=== PATIENT | female | born 1930 | race Caucasian/White ===

== ENCOUNTER 2018-01-28 13:35 | Inpatient (IN) ==
--- NOTE | 2018-01-28 13:55 | ED ---
HPI General Chief Complaint: Altered Mental Status Stated Complaint: EVAC/Weakness/ams Time Seen by Provider: 01/28/18 13:38 History of Present Illness HPI narrative: The patient was seen and examined in the presence of the nurse. This patient complains of generalized weakness. Started yesterday while she was shopping at [employer]. She went home but continued to feel weak. Today she decided to go for a walk and her legs gave out and she got gradually let down to the ground. No specific injury from a fall. She laid on the ground for a while. Her motor route carrier noticed her having trouble and called 911. She denies any pain. No specific muscle group weakness but just feels weak in general everywhere. No fever or vomiting or diarrhea or chest pain or shortness of breath. Severity is moderate. No alleviating factors. No exacerbating factors. Duration is 2 days Related Data Home Medications Medication Instructions Recorded Confirmed allopurinol 100 mg PO DAILY 01/28/18 01/28/18 amlodipine 5 mg PO DAILY 01/28/18 01/28/18 benazepril-hydrochlorothiazide 1 tab PO DAILY 01/28/18 01/28/18 metformin 500 mg PO DAILY 01/28/18 01/28/18 potassium chloride [Klor-Con] 20 meq PO DAILY 01/28/18 01/28/18 simvastatin 40 mg PO QPM 01/28/18 01/28/18 timolol maleate 1 drp OPHTHALMIC (EYE) BID 01/28/18 01/28/18 Allergies Allergy/AdvReac Type Severity Reaction Status Date / Time captopril Allergy Severe Dizziness Verified 01/28/18 13:55 ciprofloxacin [From Cipro] Allergy Severe Hives Verified 01/28/18 13:55 doxazosin [From Cardura] Allergy Severe Dizziness Verified 01/28/18 13:55 hydrocodone Allergy Severe Nausea/Vomi Verified 01/28/18 13:55 ting oxycodone Allergy Severe Dizziness Verified 01/28/18 13:55 Review of Systems Except as stated in HPI: all other systems reviewed are negative [facility] Medical History Medical History Diabetes (Acute) Social History Social History Substance History: No History of Abuse Smoking Status: Never smoker How Often Do You Have a Drink Containing Alcohol: Never Recent Out of Country Travel within the Last 8 Weeks: No Immunization History Tetanus Immunization: Unsure Hx Influenza Vaccine This Season: Yes Exam Narrative Exam Narrative: GENERAL: Well-nourished, well-developed patient in no apparent distress. SKIN: Focused skin assessment reveals no rash and nodules. Skin is Warm and dry. HEAD: Atraumatic. Normocephalic. EYES: Pupils equal and round. No scleral icterus. No injection or drainage. ENT: No nasal bleeding or discharge. Mucous membranes pink and moist. NECK: Trachea midline. No JVD. No meningeal signs or midline tenderness CARDIOVASCULAR: Regular rate and rhythm. No murmur appreciated. RESPIRATORY: No accessory muscle use. Clear to auscultation. Breath sounds equal bilaterally. GASTROINTESTINAL: Abdomen soft, non-tender, nondistended. Hepatic and splenic margins not palpable. MUSCULOSKELETAL: No obvious deformities. No clubbing. No cyanosis. No edema. She has abrasions on both elbows but no bony tenderness. There is an abrasion to the back as well without tenderness NEUROLOGICAL: Awake and alert. No obvious cranial nerve deficits. Motor grossly within normal limits. Normal speech. PSYCHIATRIC: Appropriate mood and affect; insight and judgment seems off. She is a bit confused. She gives varying accounts of the story that do not really make sense. No hallucination. Course Initial Documented Vital Signs Temperature 98.1 F 01/28/18 13:38 Pulse Rate 64 01/28/18 13:38 Respiratory Rate 18 01/28/18 13:38 Blood Pressure 149/83 H 01/28/18 13:38 Pulse Oximetry 98 01/28/18 13:38 Last Documented Vital Signs Temperature 98.1 F 01/28/18 13:38 Pulse Rate 49 L 01/28/18 14:42 Respiratory Rate 18 01/28/18 14:42 Blood Pressure 139/59 L 01/28/18 14:42 Pulse Oximetry 99 01/28/18 14:42 Medical Decision Making [facility] Narrative Medical decision making narrative: This patient has altered mental status. Etiology is not entirely clear. Brain CT is negative. She has entirely normal vitals and no fever but does have a white cell count 24.3 thousand. Will get a chest x-ray although she has no respiratory symptoms. Her catheterized urine is clean. No meningeal signs. Metabolic studies reasonably normal other than some hypokalemia. I placed a call to the hospitalist to discuss. She is not stable for outpatient follow-up given that she is an elderly lady who lives alone and is confused and has prominent leukocytosis Medical Records Medical records reviewed: Yes I reviewed the patient's medical records. Lab Data Result diagrams: 01/28/18 14:00 01/28/18 14:00 Lab Results 01/28/18 01/28/18 01/28/18 Range/Units 14:00 14:00 14:10 CBC w Diff Slide review pending WBC 24.3 H (4.0-11.0) th/mm3 RBC 4.05 (4.00-5.30) mil/mm3 Hgb 12.9 (11.6-15.3) gm/dL Hct 38.4 (35.0-46.0) % MCV 94.7 (80.0-100.0) fL MCH 31.7 (27.0-34.0) pg MCHC 33.5 (32.0-36.0) % RDW 13.4 (11.6-17.2) % Plt Count 164 (150-450) th/mm3 MPV 9.1 (7.0-11.0) fL Neut % (Auto) 43.7 (16.0-70.0) % Lymph % (Auto) 51.2 H (9.0-44.0) % [place] % (Auto) 3.0 (0.0-8.0) % Eos % (Auto) 0.0 (0.0-4.0) % Baso % (Auto) 2.1 H (0.0-2.0) % Neut # (Auto) 10.6 H (1.8-7.7) th/mm3 Lymph # (Auto) 12.5 H (1.0-4.8) th/mm3 [place] # (Auto) 0.7 (0.0-0.9) th/mm3 Eos # (Auto) 0.0 (0.0-0.4) th/mm3 Baso # (Auto) 0.5 H (0.0-0.2) th/mm3 Differential Comment . Sodium 138 (136-145) meq/L Potassium 3.0 L (3.5-5.1) meq/L Chloride 101 (98-107) meq/L Carbon Dioxide 26.7 (21.0-32.0) meq/L Anion Gap 10 (5-15) meq/L BUN 30 H (7-18) mg/dL Creatinine 1.20 H (0.50-1.00) mg/dL Estimated GFR 43 L (>89) mL/min Random Glucose 158 H (74-106) mg/dL Calcium 9.8 (8.5-10.1) mg/dL Total Bilirubin 1.3 H (0.2-1.0) mg/dL AST 118 H (15-37) U/L ALT 33 (10-53) U/L Alkaline Phosphatase 62 (45-117) U/L Total Protein 7.8 (6.4-8.2) g/dL Albumin 3.2 L (3.4-5.0) g/dL Ur Collection Type Clean catch Urine Color Yellow (Yellw/Straw) Urine Clarity Clear (Clear) Urine pH 6.5 (5.0-8.5) Ur Specific [place] 1.020 (1.002-1.035) Urine Protein 100 H (Neg-Trace) mg/dL Urine Glucose (UA) Negative (Negative) mg/dL Urine Ketones 15 H (Negative) mg/dL Urine Occult Blood Negative (Negative) Urine Nitrate Negative (Negative) Urine Bilirubin Negative (Negative) Urine Urobilinogen 0.2 (Less than 2) mg/dL Ur Leukocyte Esterase Negative (Negative) Urine WBC 0-5 (0-5) /hpf Ur Squamous Epith Cells 0-5 (0-5) /hpf Hyaline Casts 0-3 (0-3) /lpf Micro UA Comment Culture not ind Urine Culture Comments Culture not ind Imaging Data Radiologist's impression: Head CT 01/28/18 13:47 CONCLUSION: 1. No acute intracranial abnormalities. . Discharge Plan Discharge Disposition Patient Disposition: 30 Still Patient Discharge Details Diagnosis: Altered mental status, Leukocytosis, Generalized weakness Physicians Team ED Provider: Zeke Patton Rxs /Orders / Referrals /Forms Prescriptions: No Action metformin 500 mg Tablet 500 mg PO DAILY RF: 0 amlodipine 5 mg Tablet 5 mg PO DAILY RF: 0 allopurinol 100 mg Tablet 100 mg PO DAILY RF: 0 benazepril-hydrochlorothiazide 20-12.5 mg Tablet 1 tab PO DAILY RF: 0 simvastatin 40 mg Tablet 40 mg PO QPM RF: 0 potassium chloride [Klor-Con] 20 mEq Packet 20 meq PO DAILY RF: 0 timolol maleate 0.5 % Drops, Once Daily 1 drp OPHTHALMIC (EYE) BID RF: 0 Discharge Interventions Interventions: Vital Signs Last Done: 01/28/18 14:42 Status ED Status: With Doctor
[2018-01-28 14:12] LABS: Baso # (Auto) 0.5 th/mm3 (0.0-0.2); Baso % (Auto) 2.1 % (0.0-2.0); Hematocrit 38.4 % (35.0-46.0); Hemoglobin 12.9 gm/dL (11.6-15.3); Lymph # (Auto) 12.5 th/mm3 (1.0-4.8); Lymph % (Auto) 51.2 % (9.0-44.0); Mean Corpuscular HGB Conc 33.5 % (32.0-36.0); Mean Corpuscular Hemoglobin 31.7 pg (27.0-34.0); Mean Corpuscular Volume 94.7 fL (80.0-100.0); Mean Platelet Volume 9.1 fL (7.0-11.0); Mono # (Auto) 0.7 th/mm3 (0.0-0.9); Neut # (Auto) 10.6 th/mm3 (1.8-7.7); Neut % (Auto) 43.7 % (16.0-70.0); Platelet Count 164 th/mm3 (150-450); Red Blood Count 4.05 mil/mm3 (4.00-5.30); Red Cell Distribution Width 13.4 % (11.6-17.2); White Blood Count 24.3 th/mm3 (4.0-11.0)
[2018-01-28 14:22] LABS: Bilirubin,Urine Negative (Negative); Clarity,Urine Clear (Clear); Color,Urine Yellow (Yellw/Straw); Glucose,Urine (UA) Negative (Negative); Leukocyte Esterase,Urine Negative (Negative); Nitrite,Urine Negative (Negative); PH,Urine 6.5 (5.0-8.5); Urobilinogen,Urine 0.2 mg/dL (Less than 2)
--- NOTE | 2018-01-28 14:25 | CT ---
EXAM DATE: 01/28/2018 2:20 PM EDT AGE/SEX: 87 years / Female INDICATIONS: Altered mental status. CLINICAL DATA: This is the patient's initial encounter. Patient reports that signs and symptoms have been present for 1 day and indicates a pain score of 0/10. MEDICAL/SURGICAL HISTORY: Diabetes. None. RADIATION DOSE: 58.51 CTDI (mGy) COMPARISON: No prior exams available for comparison. TECHNIQUE: CT of the head without contrast. Using automated exposure control and adjustment of the mA and/or kV according to patient size, radiation dose was kept as low as reasonably achievable to ob tain optimal diagnostic quality images. DICOM format image data is available electronically for revi ew and comparison. FINDINGS: Cerebrum: The ventricles are normal for age. No evidence of midline shift, mass lesion, hemorrhage or acute infarction. No extraaxial fluid collections are seen. Posterior Fossa: The cerebellum and brainstem are intact. The 4th ventricle is midline. The cerebe llopontine angle is unremarkable. Extracranial: The visualized portion of the orbits is intact. Skull: The calvaria is intact. No evidence of skull fracture. CONCLUSION: 1. No acute intracranial abnormalities. . Electronically signed by: Charan Marc MD 01/28/2018 2:24 PM EDT
[2018-01-28 14:29] LABS: Chloride 101 meq/L (98-107); Sodium 138 meq/L (136-145)
[2018-01-28 14:32] LABS: Albumin 3.2 g/dL (3.4-5.0); Anion Gap 10 meq/L (5-15); Calcium 9.8 mg/dL (8.5-10.1); Carbon Dioxide 26.7 meq/L (21.0-32.0)
[2018-01-28 14:33] LABS: Glucose,Random 158 mg/dL (74-106)
[2018-01-28 14:34] LABS: Hyaline Casts,Urine 0-3 /lpf (0-3); Squamous Epithelial Cell,Urine 0-5 /hpf (0-5); WBC,Urine 0-5 /hpf (0-5)
[2018-01-28 14:35] LABS: Alanine Aminotransferase 33 U/L (10-53); Aspartate Aminotransferase 118 U/L (15-37)
[2018-01-28 14:36] LABS: Glomerular Filtration Rate 43 mL/min (>89)
[2018-01-28 14:37] LABS: Blood Urea Nitrogen 30 mg/dL (7-18); Total Protein 7.8 g/dL (6.4-8.2)
[2018-01-28 14:38] LABS: Alkaline Phosphatase 62 U/L (45-117)
[2018-01-28 14:43] LABS: Lymphocytes 57 % (9-44); Monocytes 2 % (0-8)
[2018-01-28 14:44] LABS: Platelet Estimate Normal (Normal); Platelet Morphology Normal (Normal)
[2018-01-28 14:50] LABS: Creatine Kinase 2301 U/L (26-192)
[2018-01-28] MEDS ORDERED: Bisacodyl 10 MG Supp RECTAL PRN (14:50)
[2018-01-28] MEDS ORDERED: KCL 20 mEq/D5W/NaCl 0.45% Inj 1,000 ML IV.CONT SCH (15:00)
--- NOTE | 2018-01-28 15:07 | XR ---
EXAM DATE: 01/28/2018 2:54 PM EDT AGE/SEX: 87 years / Female INDICATIONS: General weakness CLINICAL DATA: This is the patient's initial encounter. Patient reports that signs and symptoms have been present for 2 days and indicates a pain score of 0/10. MEDICAL/SURGICAL HISTORY: Diabetes. None. COMPARISON: No prior exams available for comparison. FINDINGS: A single AP view of the chest demonstrates questionable density right upper lobe. Left lung clear. Th e cardiomediastinal contours are unremarkable. Osseous structures are intact. Scoliotic changes. CONCLUSION: Questionable density right upper lobe likely artifactual. Otherwise lungs are clear. Electronically signed by: Dontae Francisco MD 01/28/2018 3:06 PM EDT
[2018-01-28] MEDS: KCL 20 mEq/NACL 0.45% Inj 1,000 ML IV.CONT SCH (15:15)
[2018-01-28 15:16] LABS: CKMB Percent 0.9 % (0.0-4.0); Creatine Kinase MB 21.3 ng/mL (0.5-3.6)
[2018-01-28 15:23] LABS: Troponin I 0.15 ng/mL (0.02-0.05)
--- NOTE | 2018-01-28 15:49 | P.HP ---
History of Present Illness Primary Care Physician: PROVIDER NON STAFF Chief Complaint: Generalized weakness History of Present Illness: This is a pleasant 87-year-old female patient with a known medical history of diabetes, hyperlipidemia, hypertension and gout who presented to the ED with complaints of generalized weakness. Patient states that yesterday morning she went shopping at [employer], states as she was coming in the door to her home she felt weak, states that as she was walking her legs seemed to give out and a gentleman behind her assisted her to the ground. Patient denies any associated dizziness, headache or lightheadedness. She denies any specific injury from the fall. She states that she was also seen by her glass washer and carrier who did call 911. Per patient, EVAC arrived and brought her to the emergency room. Patient does live at home alone, does state she has 2 daughters one in [place] and one in [place]. She denies any recent illness including fever, chills, cough , shortness of breath, headache, abdominal pain, nausea, vomiting, diarrhea or dysuria. She does state that she has had some constipation, has not had a bowel movement for over 4 days now. She does see her PCP quite regularly, Dr. Kelly, who manages her medications. She does state that she takes her medications religiously every day. Admits to a poor appetite and poor p.o. intake, states she could possibly be dehydrated. She denies any dysuria or changes in her urinary patterns. Head CT on presentation negative. Upon examination patient is awake and alert and oriented 3. Follows all commands appropriately. After obtaining HPI from patient, there is some question regarding the timeline of events leading up to her presentation with the possibility of patient being on the ground for quite some time. Presented with severe rhabdomyolysis. - Diagnosis (1) Altered mental status (2) Leukocytosis (3) Generalized weakness Inpatient Certification: I certify that the inpatient services were ordered in accordance with Medicare regulations governing the order. This includes certification that hospital inpatient services are reasonable and necessary and in the case of services not specified as inpatient-only under 42 CFR 419.22(n), that they are appropriately provided as inpatient services in accordance to with the 2-midnight benchmark under 43 CFR 412.3(e) Estimated Total Length of Stay (Days): 3 Plans for Post Hospital Care: Not yet determined Review of Systems All other systems reviewed negative except as stated in HPI PMFSH - History History Provided By: Patient - Medical History Medical History: Medical History (Last Updated 01/28/18 @ 15:57 by Melani Hendrickson) Diabetes Gout Hyperlipidemia Hypertension - Surgical History Surgical History: Surgical History (Last Updated 01/28/18 @ 15:57 by Melani Hendrickson) No history of previous surgery - Family History Family History: Family History (Last Updated 01/28/18 @ 15:56 by Melani Hendrickson) Other No significant family history - Tobacco History Second Hand Smoke Exposure: No Tobacco Use In Past 30 Days: No Smoking Status: Never smoker - Alcohol History How Often Do You Have a Drink Containing Alcohol: Never - Substance Use History Substance History: No History of Abuse - Travel History Recent Travel Out of the Country Within the Last 8 Weeks: No - Immunization History Tetanus Immunization: Unsure Hx Influenza Vaccine This Season: Yes Medications and Allergies Active Medications: Active Medications Al Hydroxide/Mg Hydroxide (Milk Of Magnesia Liq) 30 ml PO Q12H PRN PRN Reason: Mild Constipation Bisacodyl (Dulcolax Supp) 10 mg RECTAL DAILY PRN PRN Reason: SEVERE CONSITIPATION Potassium Chloride/Sodium Chloride (Potassium Chlor 20 Meq/Nacl 0.45% Inj) 1, 000 mls @ 100 mls/hr IV.CONT .Q10H ELIDIA Last Admin: 01/28/18 15:15 Dose: 100 mls/hr Lactulose (Lactulose Liq) 30 ml PO DAILY PRN PRN Reason: SEVERE CONSITIPATION Potassium Chloride (Kcl Powder) 20 meq PO DAILY ELIDIA Sennosides (Senokot) 17.2 mg PO Q12H PRN PRN Reason: Moderate Constipation Sodium Chloride (Ns Flush) 2 ml IV.FLUSH PRN PRN PRN Reason: FLUSH AFTER USING IV ACCESS Allergies Allergy/AdvReac Type Severity Reaction Status Date / Time captopril Allergy Severe Dizziness Verified 01/28/18 13:55 ciprofloxacin [From Cipro] Allergy Severe Hives Verified 01/28/18 13:55 doxazosin [From Cardura] Allergy Severe Dizziness Verified 01/28/18 13:55 hydrocodone Allergy Severe Nausea/Vomi Verified 01/28/18 13:55 ting oxycodone Allergy Severe Dizziness Verified 01/28/18 13:55 Home Medications Medication Instructions Recorded Confirmed Type allopurinol 100 mg PO DAILY 01/28/18 01/28/18 History amlodipine 5 mg PO DAILY 01/28/18 01/28/18 History benazepril-hydrochlorothiazide 1 tab PO DAILY 01/28/18 01/28/18 History metformin 500 mg PO DAILY 01/28/18 01/28/18 History potassium chloride [Klor-Con] 20 meq PO DAILY 01/28/18 01/28/18 History simvastatin 40 mg PO QPM 01/28/18 01/28/18 History timolol maleate 1 drp OPHTHALMIC (EYE) BID 01/28/18 01/28/18 History Exam Vital signs: Vital Signs 01/28/18 13:38 01/28/18 13:50 01/28/18 14:11 Temperature 98.1 F Pulse Rate 64 76 Respiratory Rate 18 18 Blood Pressure 149/83 H 136/67 Pulse Oximetry 98 98 97 01/28/18 14:42 Temperature Pulse Rate 49 L Respiratory Rate 18 Blood Pressure 139/59 L Pulse Oximetry 99 Intake & Output 01/27/18 01/28/18 01/28/18 18:59 06:59 18:59 Output Total 650 / 650 Balance -650 / -650 Weight 62.596 kg Output: Urine Amount (Catheter) 650 / 650 Straight 650 / 650 Narrative: GENERAL: Well-developed, well-nourished elderly female patient in [facility]. SKIN: Warm and dry. Multiple abrasions on upper extremities. Mild erythema in the coccyx. Left hip abrasion. HEAD: Normocephalic. Atraumatic. EYES: Pupils equal and round. No scleral icterus. No injection or drainage. ENT: No nasal bleeding or discharge. Mucous membranes pink and moist. NECK: Supple. Trachea midline. CARDIOVASCULAR: Regular rate and rhythm. S1, S2 noted. No murmur appreciated. RESPIRATORY: No accessory muscle use. Clear to auscultation. Breath sounds equal bilaterally. GASTROINTESTINAL: Abdomen soft, non-tender, mildly distended. Normoactive bowel sounds x4. MUSCULOSKELETAL: No obvious deformities. Extremities without clubbing, cyanosis , or edema. NEUROLOGICAL: Awake and alert. No obvious cranial nerve deficits. Motor grossly within normal limits. 4/5 muscle strength in bilateral upper and lower extremities. Normal speech. PSYCHIATRIC: Appropriate mood and affect; insight and judgment normal. - Constitutional no acute distress - Routine HEENT Exam Head: Present: normocephalic Eye: Present: EOMI, PERRL ENT: Present: mucous membranes moist - Routine Neck Exam Present: supple Results - Labs CBC & Chem 7: 01/28/18 14:00 01/28/18 14:00 Labs: Laboratory Results - last 24 hr 01/28/18 01/28/18 01/28/18 14:00 14:00 14:10 CBC w Diff Slide review pending WBC 24.3 H RBC 4.05 Hgb 12.9 Hct 38.4 MCV 94.7 MCH 31.7 MCHC 33.5 RDW 13.4 Plt Count 164 MPV 9.1 Neut % (Auto) 43.7 Lymph % (Auto) 51.2 H [place] % (Auto) 3.0 Eos % (Auto) 0.0 Baso % (Auto) 2.1 H Neut # (Auto) 10.6 H Lymph # (Auto) 12.5 H [place] # (Auto) 0.7 Eos # (Auto) 0.0 Baso # (Auto) 0.5 H WBC Differential Manual diff final Seg Neuts % (Manual) 39 Band Neuts % (Manual) 2 Lymphocytes % (Manual) 57 H Monocytes % (Manual) 2 Abs Neuts (Manual) 10.0 H Differential Comment . Platelet Estimate Normal Platelet Morphology Normal Sodium 138 Potassium 3.0 L Chloride 101 Carbon Dioxide 26.7 Anion Gap 10 BUN 30 H Creatinine 1.20 H Estimated GFR 43 L Random Glucose 158 H Calcium 9.8 Total Bilirubin 1.3 H AST 118 H ALT 33 Alkaline Phosphatase 62 Total Creatine Kinase 2301 H CK-MB (CK-2) 21.3 H CK-MB (CK-2) % 0.9 Troponin I 0.15 H Total Protein 7.8 Albumin 3.2 L Ur Collection Type Clean catch Urine Color Yellow Urine Clarity Clear Urine pH 6.5 Ur Specific [place] 1.020 Urine Protein 100 H Urine Glucose (UA) Negative Urine Ketones 15 H Urine Occult Blood Negative Urine Nitrate Negative Urine Bilirubin Negative Urine Urobilinogen 0.2 Ur Leukocyte Esterase Negative Urine WBC 0-5 Ur Squamous Epith Cells 0-5 Hyaline Casts 0-3 Micro UA Comment Culture not ind Urine Culture Comments Culture not ind - Imaging Impressions Head CT 01/28/18 13:47 CONCLUSION: 1. No acute intracranial abnormalities. . Chest X-Ray 01/28/18 14:42 CONCLUSION: Questionable density right upper lobe likely artifactual. Otherwise lungs are clear. Caprini VTE Risk Assessment Caprini VTE Risk Assessment: Moderate/High Risk (score >= 2) Caprini Risk Assessment Model: Point Value = 1 Point Value = 2 Point Value = 3 Point Value = 5 Age 41-60 Minor surgery BMI > 25 kg/m2 Swollen legs Varicose veins or History of unexplained or recurrent spontaneous Oral contraceptives or hormone replacement Sepsis (< 1 month) Serious lung disease, including pneumonia (< 1 month) Abnormal pulmonary function Acute myocardial infarction Congestive heart failure (< 1 month) History of inflammatory bowel disease Medical patient at bed rest Age 61-74 Arthroscopic surgery Major open surgery (> 45 min) Laparoscopic surgery (> 45 min) Malignancy Confined to bed (> 72 hours) Immobilizing plaster cast Central venous access Age >= 75 History of VTE Family history of VTE Factor V Leiden Prothrombin [id number] Lupus anticoagulant Anticardiolipin antibodies Elevated serum homocysteine Heparin-induced thrombocytopenia Other congenital or acquired thrombophilia Stroke (< 1 month) Elective arthroplasty Hip, pelvis, or leg fracture Acute spinal cord injury (< 1 month) Prophylaxis Regimen: Total Risk Factor Score Risk Level Prophylaxis Regimen 0-1 Low Early ambulation 2 Moderate Order ONE of the following: *Sequential Compression Device (SCD) *Heparin 5000 units SQ BID 3-4 Higher Order ONE of the following medications: *Heparin 5000 units SQ TID *Enoxaparin/Lovenox 40 mg SQ daily (WT < 150 kg, CrCl > 30 mL/min) *Enoxaparin/Lovenox 30 mg SQ daily (WT < 150 kg, CrCl > 10-29 mL/min) *Enoxaparin/Lovenox 30 mg SQ BID (WT < 150 kg, CrCl > 30 mL/min) AND/OR *Sequential Compression Device (SCD) 5 or more Highest Order ONE of the following medications: *Heparin 5000 units SQ TID (Preferred with Epidurals) *Enoxaparin/Lovenox 40 mg SQ daily (WT < 150 kg, CrCl > 30 mL/min) *Enoxaparin/Lovenox 30 mg SQ daily (WT < 150 kg, CrCl > 10-29 mL/min) *Enoxaparin/Lovenox 30 mg SQ BID (WT < 150 kg, CrCl > 30 mL/min) AND *Sequential Compression Device (SCD) Assessment and Plan - Assessment (1) Altered mental status Code(s): R41.82 - Altered mental status, unspecified Status: Acute (2) Leukocytosis Code(s): D72.829 - Elevated white blood cell count, unspecified Status: Acute (3) Generalized weakness Code(s): R53.1 - Weakness Status: Acute - Plan This is a pleasant 87-year-old female patient with a known medical history of diabetes, hyperlipidemia, hypertension and gout who presented to the ED with complaints of generalized weakness. Severe rhabdomyolysis Near syncope at home Generalized weakness in lower extremities Altered mental status Dehydration -Head CT on presentation reviewed and negative. Patient is awake and alert and oriented 3 upon assessment. -CPK levels 2301/CKMB 23/Creatinine 1.2. Continue IVF. Monitor trends. -Will order orthostatics, follow. Rule out any orthostatic hypotension. -Continue cardiac telemetry, monitor for any arrhythmias. -PT consulted, evaluation pending. Elevated troponin -Denies any chest pain. Likely secondary to severe rhabdomyolysis. -Will trend. Continue cardiac telemetry, rule out any arrhythmias. -EKG reviewed and showing from my interpretation SR with controlled heart rate with no ST changes. Will continue to monitor EKGs. Leukocytosis -White blood cell 24.3, unknown source at this time. May be reactive to rhabdomyolysis. -UA negative. Chest x-ray reviewed showing right upper lobe artificial findings. Patient is not short of breath, adequate O@ sats 99% on RA. -Will monitor for any infection, afebrile at this time. -Recheck CBC in am. Elevated liver enzymes -Total bilirubin 1.3, AST 118. Mildly distended abdomen. -Will check liver ultrasound. Follow. -Hold statin. Hypokalemia: K 3.0. Order for replacement in ED. Follow BMP and replete as needed. Constipation: Reports of no BM x 4 days. Bowel regimen ordered. Monitor for response. Hypertension, chronic: Hold home medications. Monitor blood pressure trends. Will check orthostatic blood pressure. Follow. Type 2 diabetes mellitus, chronic -Accu-Chek before meals at bedtime, sliding scale, cover as needed. Monitor blood sugar trends. Hold metformin for now. Hyperlipidemia, chronic -Hold home statin for now secondary to rhabdo and mildly elevated liver enzymes. DVT prophylaxis: SCDs. (1) Altered mental status Qualifiers: Altered mental status type: disorientation Qualified Code(s): R41.0 - Disorientation, unspecified (2) Leukocytosis Qualifiers: Leukocytosis type: unspecified Qualified Code(s): D72.829 - Elevated white blood cell count, unspecified
[2018-01-28] MEDS ORDERED: Dextrose 50% in Water 50 ML Vial IV.PUSH PRN (17:01)
--- NOTE | 2018-01-28 17:44 | US ---
EXAM DATE: 01/28/2018 5:20 PM EDT AGE/SEX: 87 years / Female INDICATIONS: Elevated LFT's. CLINICAL DATA: This is the patient's initial encounter. Patient reports that signs and symptoms have been present for 2 days and indicates a pain score of 0/10. MEDICAL/SURGICAL HISTORY: Diabetes. Lymphoma. Hypercholesterolemia. Hypertension. Gout. No ne. COMPARISON: No prior exams available for comparison. MEASUREMENTS: Liver:__ 15.3 cm. Common Bile Duct:__ 8mm. Right Kidney:__ 8.9 x 4.2 x 4.2 cm. FINDINGS: Liver: Heterogeneous appearance with mildly lobulated orders Portal Vein: Hepatopedal flow seen in portal vein. Common Duct: No intraluminal mass or stone visualized. Gallbladder: No definite gallstones. Pancreas: Not well visualized. Right Kidney: Increased echogenicity with some renal atrophy. Other: None. CONCLUSION: Heterogeneous liver with slight lobulation. Differential diagnosis includes cirrhosis. No gallstones. Common bile duct mildly prominent in size. Normal flow direction in the portal vein. 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 Electronically signed by: Charan Marc MD 01/28/2018 5:43 PM EDT
[2018-01-28 20:43] LABS: Troponin I 0.16 ng/mL (0.02-0.05)
[2018-01-28 21:06] LABS: CKMB Percent 1.4 % (0.0-4.0); Creatine Kinase MB 26.2 ng/mL (0.5-3.6)
[2018-01-28] MEDS: Senna/Docusate Sodium 8.6/50 MG Tablet PO SCH (21:11)
[2018-01-28] MEDS: Insulin NovoLOG Aspart Correctional Sugar Inj SQ SCH (21:12)
[2018-01-29] MEDS: KCL 20 mEq/NACL 0.45% Inj 1,000 ML IV.CONT SCH ×3 (00:47→22:17)
[2018-01-29 03:17] LABS: Troponin I 0.15 ng/mL (0.02-0.05)
[2018-01-29 03:42] LABS: CKMB Percent 1.1 % (0.0-4.0)
[2018-01-29 06:12] LABS: Baso % (Auto) 0.2 % (0.0-2.0); Eos % (Auto) 0.1 % (0.0-4.0); Hemoglobin 11.7 gm/dL (11.6-15.3); Lymph # (Auto) 12.1 th/mm3 (1.0-4.8); Lymph % (Auto) 54.3 % (9.0-44.0); Mean Corpuscular HGB Conc 34.5 % (32.0-36.0); Mean Corpuscular Hemoglobin 31.9 pg (27.0-34.0); Mean Corpuscular Volume 92.5 fL (80.0-100.0); Mean Platelet Volume 9.8 fL (7.0-11.0); Mono # (Auto) 0.9 th/mm3 (0.0-0.9); Mono % (Auto) 4.2 % (0.0-8.0); Neut # (Auto) 9.1 th/mm3 (1.8-7.7); Neut % (Auto) 41.2 % (16.0-70.0); Platelet Count 155 th/mm3 (150-450); Red Blood Count 3.68 mil/mm3 (4.00-5.30); Red Cell Distribution Width 13.7 % (11.6-17.2); White Blood Count 22.1 th/mm3 (4.0-11.0)
[2018-01-29 06:21] LABS: Potassium 3.1 meq/L (3.5-5.1)
[2018-01-29 06:24] LABS: Calcium 9.4 mg/dL (8.5-10.1); Carbon Dioxide 25.2 meq/L (21.0-32.0)
[2018-01-29 06:57] LABS: Lymphocytes 42 % (9-44); Monocytes 5 % (0-8)
[2018-01-29 06:58] LABS: Platelet Estimate Normal (Normal); Platelet Morphology Normal (Normal); RBC Morphology Normal (Normal)
[2018-01-29 07:02] LABS: CKMB Percent 1.1 % (0.0-4.0); Creatine Kinase MB 16.4 ng/mL (0.5-3.6)
[2018-01-29] MEDS: Potassium Chloride 20 MEQ Pwd Pkt PO SCH (08:23)
[2018-01-29] MEDS: Senna/Docusate Sodium 8.6/50 MG Tablet PO SCH ×2 (08:24→22:16)
[2018-01-29] MEDS: amLODIPine 5 MG Tablet PO SCH (08:24)
--- NOTE | 2018-01-29 09:02 | P.PN ---
Subjective Interval history: Follow-up severe rhabdomyolysis and altered mental status. Patient seen and examined, lying in bed sleeping. Patient arouses to voice. Is alert and oriented 3. States she slept well overnight. Did eat a small amount of her breakfast although states she does not have an appetite. Denies any abdominal pain or nausea. No reports of any bowel movements overnight. Will order for as needed bowel regimen. Monitor for response. PT eval today. Awaiting recs for discharge. Supposedly patient's family has flown in from out of town occluding her daughter and son. Physical Exam Vital signs: Vital Signs 01/28/18 13:38 01/28/18 13:50 01/28/18 14:11 Temperature 98.1 F Pulse Rate 64 76 Respiratory Rate 18 18 Blood Pressure 149/83 H 136/67 Pulse Oximetry 98 98 97 01/28/18 14:42 01/28/18 16:00 01/28/18 20:00 Temperature 98.2 F 98.2 F Pulse Rate 49 L 72 77 Respiratory Rate 18 16 20 Blood Pressure 139/59 L 147/87 H 170/74 H Pulse Oximetry 99 100 98 01/29/18 00:00 01/29/18 04:00 01/29/18 08:00 Temperature 97.6 F 98.5 F 98.5 F Pulse Rate 70 78 78 Respiratory Rate 20 20 18 Blood Pressure 127/69 177/70 H 149/67 H Pulse Oximetry 94 L 96 95 Intake & Output 01/28/18 01/29/18 01/29/18 18:59 06:59 18:59 Intake Total 2119 Output Total 650 / 650 Balance -650 / -650 2119 Weight 62.596 kg 62.6 kg Intake: IV 1999 Potassium Chlor 20 mEq/NACL 0. 2000 / 1999 45% Inj 1,000 ML @ 100 mls/hr IV.CONT .Q10H [facility] Rx#: [id number] Oral 120 / 120 Output: Urine Amount (Catheter) 650 / 650 Straight 650 / 650 Other: # Voids 3 Narrative: GENERAL: Well-developed, well-nourished patient in [facility]. SKIN: Warm and dry. No rash. HEAD: Normocephalic. Atraumatic. EYES: Pupils equal and round. No scleral icterus. No injection or drainage. ENT: No nasal bleeding or discharge. Mucous membranes pink and moist. NECK: Supple. Trachea midline. CARDIOVASCULAR: Regular rate and rhythm. S1, S2 noted. No murmur appreciated. RESPIRATORY: No accessory muscle use. Clear to auscultation. Breath sounds equal bilaterally. GASTROINTESTINAL: Abdomen soft, non-tender, nondistended. Normoactive bowel sounds x4. MUSCULOSKELETAL: No obvious deformities. Extremities without clubbing, cyanosis , or edema. NEUROLOGICAL: Awake and alert. No obvious cranial nerve deficits. Motor grossly within normal limits. 5/5 muscle strength in bilateral upper and lower extremities. Normal speech. PSYCHIATRIC: Appropriate mood and affect; insight and judgment normal. - Urinary Catheter Management Straight Cath placed during this visit: no Reason for continuing: Not indwelling catheter Results - Labs CBC & Chem 7: 01/29/18 05:05 01/29/18 05:05 Laboratory Results - last 24 hr 01/28/18 01/28/18 01/28/18 14:00 14:00 14:10 CBC w Diff Slide review pending WBC 24.3 H RBC 4.05 Hgb 12.9 Hct 38.4 MCV 94.7 MCH 31.7 MCHC 33.5 RDW 13.4 Plt Count 164 MPV 9.1 Neut % (Auto) 43.7 Lymph % (Auto) 51.2 H [place] % (Auto) 3.0 Eos % (Auto) 0.0 Baso % (Auto) 2.1 H Neut # (Auto) 10.6 H Lymph # (Auto) 12.5 H [place] # (Auto) 0.7 Eos # (Auto) 0.0 Baso # (Auto) 0.5 H WBC Differential Manual diff final Seg Neuts % (Manual) 39 Band Neuts % (Manual) 2 Lymphocytes % (Manual) 57 H Monocytes % (Manual) 2 Basophils % (Manual) Abs Neuts (Manual) 10.0 H Differential Comment . Platelet Estimate Normal Platelet Morphology Normal RBC Morphology Sodium 138 Potassium 3.0 L Chloride 101 Carbon Dioxide 26.7 Anion Gap 10 BUN 30 H Creatinine 1.20 H Estimated GFR 43 L POC Glucose Random Glucose 158 H Calcium 9.8 Total Bilirubin 1.3 H AST 118 H ALT 33 Alkaline Phosphatase 62 Total Creatine Kinase 2301 H CK-MB (CK-2) 21.3 H CK-MB (CK-2) % 0.9 Troponin I 0.15 H Total Protein 7.8 Albumin 3.2 L Ur Collection Type Clean catch Urine Color Yellow Urine Clarity Clear Urine pH 6.5 Ur Specific [place] 1.020 Urine Protein 100 H Urine Glucose (UA) Negative Urine Ketones 15 H Urine Occult Blood Negative Urine Nitrate Negative Urine Bilirubin Negative Urine Urobilinogen 0.2 Ur Leukocyte Esterase Negative Urine WBC 0-5 Ur Squamous Epith Cells 0-5 Hyaline Casts 0-3 Micro UA Comment Culture not ind Urine Culture Comments Culture not ind 01/28/18 01/28/18 01/28/18 16:47 20:20 20:20 CBC w Diff WBC RBC Hgb Hct MCV MCH MCHC RDW Plt Count MPV Neut % (Auto) Lymph % (Auto) [place] % (Auto) Eos % (Auto) Baso % (Auto) Neut # (Auto) Lymph # (Auto) [place] # (Auto) Eos # (Auto) Baso # (Auto) WBC Differential Seg Neuts % (Manual) Band Neuts % (Manual) Lymphocytes % (Manual) Monocytes % (Manual) Basophils % (Manual) Abs Neuts (Manual) Differential Comment Platelet Estimate Platelet Morphology RBC Morphology Sodium Potassium Chloride Carbon Dioxide Anion Gap BUN Creatinine Estimated GFR POC Glucose 142 H 158 H Random Glucose Calcium Total Bilirubin AST ALT Alkaline Phosphatase Total Creatine Kinase 1867 H CK-MB (CK-2) 26.2 H CK-MB (CK-2) % 1.4 Troponin I 0.16 H Total Protein Albumin Ur Collection Type Urine Color Urine Clarity Urine pH Ur Specific [place] Urine Protein Urine Glucose (UA) Urine Ketones Urine Occult Blood Urine Nitrate Urine Bilirubin Urine Urobilinogen Ur Leukocyte Esterase Urine WBC Ur Squamous Epith Cells Hyaline Casts Micro UA Comment Urine Culture Comments 01/29/18 01/29/18 01/29/18 02:45 05:05 05:05 CBC w Diff Slide review pending WBC 22.1 H RBC 3.68 L Hgb 11.7 Hct 34.0 L MCV 92.5 MCH 31.9 MCHC 34.5 RDW 13.7 Plt Count 155 MPV 9.8 Neut % (Auto) 41.2 Lymph % (Auto) 54.3 H [place] % (Auto) 4.2 Eos % (Auto) 0.1 Baso % (Auto) 0.2 Neut # (Auto) 9.1 H Lymph # (Auto) 12.1 H [place] # (Auto) 0.9 Eos # (Auto) 0.0 Baso # (Auto) 0.0 WBC Differential Manual diff final Seg Neuts % (Manual) 42 Band Neuts % (Manual) 10 H Lymphocytes % (Manual) 42 Monocytes % (Manual) 5 Basophils % (Manual) 1 Abs Neuts (Manual) 11.5 H Differential Comment . Platelet Estimate Normal Platelet Morphology Normal RBC Morphology Normal Sodium 139 Potassium 3.1 L Chloride 101 Carbon Dioxide 25.2 Anion Gap 13 BUN 29 H Creatinine 0.94 Estimated GFR 57 L POC Glucose Random Glucose 118 H Calcium 9.4 Total Bilirubin AST ALT Alkaline Phosphatase Total Creatine Kinase 1602 H 1511 H CK-MB (CK-2) 18.0 H 16.4 H CK-MB (CK-2) % 1.1 1.1 Troponin I 0.15 H Total Protein Albumin Ur Collection Type Urine Color Urine Clarity Urine pH Ur Specific [place] Urine Protein Urine Glucose (UA) Urine Ketones Urine Occult Blood Urine Nitrate Urine Bilirubin Urine Urobilinogen Ur Leukocyte Esterase Urine WBC Ur Squamous Epith Cells Hyaline Casts Micro UA Comment Urine Culture Comments 01/29/18 07:54 CBC w Diff WBC RBC Hgb Hct MCV MCH MCHC RDW Plt Count MPV Neut % (Auto) Lymph % (Auto) [place] % (Auto) Eos % (Auto) Baso % (Auto) Neut # (Auto) Lymph # (Auto) [place] # (Auto) Eos # (Auto) Baso # (Auto) WBC Differential Seg Neuts % (Manual) Band Neuts % (Manual) Lymphocytes % (Manual) Monocytes % (Manual) Basophils % (Manual) Abs Neuts (Manual) Differential Comment Platelet Estimate Platelet Morphology RBC Morphology Sodium Potassium Chloride Carbon Dioxide Anion Gap BUN Creatinine Estimated GFR POC Glucose 126 H Random Glucose Calcium Total Bilirubin AST ALT Alkaline Phosphatase Total Creatine Kinase CK-MB (CK-2) CK-MB (CK-2) % Troponin I Total Protein Albumin Ur Collection Type Urine Color Urine Clarity Urine pH Ur Specific [place] Urine Protein Urine Glucose (UA) Urine Ketones Urine Occult Blood Urine Nitrate Urine Bilirubin Urine Urobilinogen Ur Leukocyte Esterase Urine WBC Ur Squamous Epith Cells Hyaline Casts Micro UA Comment Urine Culture Comments - Imaging Impressions Liver Ultrasound 01/28/18 00:00 CONCLUSION: Heterogeneous liver with slight lobulation. Differential diagnosis includes cirrhosis. No gallstones. Common bile duct mildly prominent in size. Normal flow direction in the portal vein. 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 Head CT 01/28/18 13:47 CONCLUSION: 1. No acute intracranial abnormalities. . Chest X-Ray 01/28/18 14:42 CONCLUSION: Questionable density right upper lobe likely artifactual. Otherwise lungs are clear. Assessment and Plan - Assessment (1) Altered mental status Code(s): R41.82 - Altered mental status, unspecified Status: Acute (2) Leukocytosis Code(s): D72.829 - Elevated white blood cell count, unspecified Status: Acute (3) Generalized weakness Code(s): R53.1 - Weakness Status: Acute - Plan This is a pleasant 87-year-old female patient with a known medical history of diabetes, hyperlipidemia, hypertension and gout who presented to the ED with complaints of generalized weakness. Severe rhabdomyolysis, improving. Near syncope at home Generalized weakness in lower extremities Altered mental status Dehydration -Head CT on presentation reviewed and negative. Patient is awake and alert and oriented 3 upon assessment. Somewhat drowsy this morning. -CPK levels 2301/CKMB 23/Creatinine 1.2. Trend is improving. Continue on IV fluid. -No significant orthostasis. -Continue cardiac telemetry, monitor for any arrhythmias. -PT consulted, appreciate input recommendations. Elevated troponin. Resolved. -Denies any chest pain. Likely secondary to severe rhabdomyolysis. -Will trend. Continue cardiac telemetry, rule out any arrhythmias. -EKG reviewed and showing from my interpretation SR with controlled heart rate with no ST changes. Will continue to monitor EKGs. Leukocytosis -White blood cell 24.3 has trended down to 22 today, unknown source at this time. May be reactive to rhabdomyolysis and stress response. -UA negative. Chest x-ray reviewed showing right upper lobe artificial findings. Patient is not short of breath, adequate O2 sats 99% on RA. -Will monitor for any infection, afebrile at this time. Elevated liver enzymes, resolved. -Total bilirubin 1.3, AST 118. Abdominal distention improved. -Liver ultrasound reviewed no acute findings. Possible underlying cirrhosis. Patient denies any alcohol abuse. -Hold statin for now. Hypokalemia: K 3.1. Order for replacement in ED. Follow BMP and replete as needed. Constipation: Reports of no BM x 4 days. Bowel regimen ordered. Monitor for response. Hypertension, chronic: Blood pressure elevated today. Will resume home medications. Monitor blood pressure trends. Type 2 diabetes mellitus, chronic -Accu-Chek before meals at bedtime, sliding scale, cover as needed. Monitor blood sugar trends. Hold metformin for now. Hyperlipidemia, chronic -Hold home statin for now secondary to rhabdo and mildly elevated liver enzymes. DVT prophylaxis: SCDs. Discharge Planning: Monitor for clinical improvement. Awaiting PT evaluation for discharge recommendations. (1) Altered mental status Qualifiers: Altered mental status type: disorientation Qualified Code(s): R41.0 - Disorientation, unspecified (2) Leukocytosis Qualifiers: Leukocytosis type: unspecified Qualified Code(s): D72.829 - Elevated white blood cell count, unspecified
[2018-01-29] MEDS: Insulin NovoLOG Aspart Correctional Sugar Inj SQ SCH ×4 (09:04→22:16)
--- NOTE | 2018-01-29 22:16 | ECG ---
Date Performed: 01/29/2018 Time Performed: 01:48:34 PTAGE: 87 years EKG: Sinus rhythm RIGHT BUNDLE BRANCH BLOCK LEFT ANTERIOR FASCICULAR BLOCK ABNORMAL ECG PREVIOUS TRACING : 01/28/2018 20.10 Since the previous tracing, no significant change noted DOCTOR: Frank Muller Interpretating Date/Time 01/29/2018 22:11:41
--- NOTE | 2018-01-29 22:28 | ECG ---
Date Performed: 01/28/2018 Time Performed: 20:10:53 PTAGE: 87 years EKG: Sinus rhythm RIGHT BUNDLE BRANCH BLOCK LEFT ANTERIOR FASCICULAR BLOCK ABNORMAL ECG PREVIOUS TRACING : 01/28/2018 13.49 Since the previous tracing, no significant change noted DOCTOR: Frank Muller Interpretating Date/Time 01/29/2018 22:26:06
--- NOTE | 2018-01-29 22:41 | ECG ---
Date Performed: 01/28/2018 Time Performed: 13:49:54 PTAGE: 87 years EKG: Sinus rhythm LOW QRS VOLTAGE IN PRECORDIAL LEADS JUNCTIONAL ST DEPRESSION, CONSIDER NORMAL VARIANT BORDERLINE ECG PREVIOUS TRACING : 04/06/2002 06.26 Since the previous tracing, no significant change noted DOCTOR: Frnak Muller Interpretating Date/Time 01/29/2018 22:39:44
[2018-01-30 06:31] LABS: Baso # (Auto) 0.1 th/mm3 (0.0-0.2); Baso % (Auto) 0.8 % (0.0-2.0); Eos # (Auto) 0.1 th/mm3 (0.0-0.4); Eos % (Auto) 0.3 % (0.0-4.0); Hematocrit 35.3 % (35.0-46.0); Hemoglobin 11.8 gm/dL (11.6-15.3); Lymph # (Auto) 10.2 th/mm3 (1.0-4.8); Lymph % (Auto) 58.5 % (9.0-44.0); Mean Corpuscular HGB Conc 33.4 % (32.0-36.0); Mean Corpuscular Hemoglobin 31.3 pg (27.0-34.0); Mean Corpuscular Volume 93.9 fL (80.0-100.0); Mean Platelet Volume 9.7 fL (7.0-11.0); Mono # (Auto) 0.6 th/mm3 (0.0-0.9); Mono % (Auto) 3.5 % (0.0-8.0); Neut # (Auto) 6.4 th/mm3 (1.8-7.7); Neut % (Auto) 36.9 % (16.0-70.0); Platelet Count 141 th/mm3 (150-450); Red Blood Count 3.76 mil/mm3 (4.00-5.30); Red Cell Distribution Width 13.3 % (11.6-17.2); White Blood Count 17.4 th/mm3 (4.0-11.0)
[2018-01-30 06:50] LABS: Calcium 9.3 mg/dL (8.5-10.1)
[2018-01-30 07:35] LABS: CKMB Percent 0.8 % (0.0-4.0); Creatine Kinase MB 6.1 ng/mL (0.5-3.6)
[2018-01-30 07:41] LABS: Lymphocytes 60 % (9-44); Monocytes 3 % (0-8); Platelet Morphology Normal (Normal); Smudge Cells Present
--- NOTE | 2018-01-30 08:56 | P.DS ---
Date of admission: 01/28/18 14:43 Primary care physician: PROVIDER NON STAFF Brief History from admission: This is a pleasant 87-year-old female patient with a known medical history of diabetes, hyperlipidemia, hypertension and gout who presented to the ED with complaints of generalized weakness. Patient states that yesterday morning she went shopping at [employer], states as she was coming in the door to her home she felt weak, states that as she was walking her legs seemed to give out and a gentleman behind her assisted her to the ground. Patient denies any associated dizziness, headache or lightheadedness. She denies any specific injury from the fall. She states that she was also seen by her hod carrier who did call 911. Per patient, EVAC arrived and brought her to the emergency room. Patient does live at home alone, does state she has 2 daughters one in [place] and one in [place]. She denies any recent illness including fever, chills, cough , shortness of breath, headache, abdominal pain, nausea, vomiting, diarrhea or dysuria. She does state that she has had some constipation, has not had a bowel movement for over 4 days now. She does see her PCP quite regularly, Dr. Kelly, who manages her medications. She does state that she takes her medications religiously every day. Admits to a poor appetite and poor p.o. intake, states she could possibly be dehydrated. She denies any dysuria or changes in her urinary patterns. Head CT on presentation negative. Upon examination patient is awake and alert and oriented 3. Follows all commands appropriately. After obtaining HPI from patient, there is some question regarding the timeline of events leading up to her presentation with the possibility of patient being on the ground for quite some time. Presented with severe rhabdomyolysis. DS: Diagnosis - Discharge Diagnosis (1) Altered mental status Status: Acute (2) Leukocytosis Status: Acute (3) Generalized weakness Status: Acute DS: Medications - Discharge Medications Prescriptions: megestrol 40 mg PO DAILY 30 Days #30 tab sennosides-docusate sodium [Senna Plus] 1 tab PO BID 30 Days #60 tab DS: Summary Hospital Course: This is a pleasant 87-year-old female patient with a known medical history of diabetes, hyperlipidemia, hypertension and gout who presented to the ED with complaints of generalized weakness. Patient presented with severe rhabdomyolysis, and years weakness in lower extremities and altered mental status with dehydration. Patient also presented with acute kidney injury with creatinine 1.2 and GFR 43. Improved to baseline of 0.8. CPK levels were 2300 and improved on IV fluid. Head CT on presentation was negative. Patient was placed on cardiac telemetry no arrhythmias were noted. PT was consulted and evaluated, recommendations for rehab. Patient did have an elevated troponin as well, this was likely secondary to severe rhabdomyolysis. She denied any chest pain the entire hospitalization. Cardiac telemetry was continued. EKG was reviewed and showed per my interpretation sinus rhythm with controlled heart rate no ST changes. Patient did also present with leukocytosis, white blood cell was 24 on presentation and improved to 17,000 upon day of discharge. The source of this was unknown. May be reactive to rhabdomyolysis and stress response. UA was negative. Chest x-ray did show some artificial findings, patient did not display any shortness of breath, or any drop in her oxygen sats. She did not have any cough or phlegm production. Patient was afebrile throughout her hospitalization. It was also noted that patient had elevated liver enzymes, no abdominal disc comfort, there was some mild abdominal distention. Liver ultrasound was performed showing no acute findings. Possibly underlying cirrhosis although patient denies any alcohol abuse. Statin was held during hospitalization. Patient was encouraged to follow-up with PCP regarding any follow-up needed for elevated liver enzymes. Patient also presented with hypokalemia, this was replaced and BMP followed during hospitalization. Patient did have constipation, bowel regimen ordered and there are reports that patient did have a bowel movement prior to discharge. Patient has a history of hypertension, was elevated upon presentation, resumed on home medications and blood pressure did normalize. Patient has history of type 2 diabetes, patient was placed on sliding scale insulin and covered as needed. Blood sugar trends were controlled. Continued on home metformin. Patient was stabilized upon discharge, encouraged to follow-up with PCP and continue at rehab. - Time Spent with Patient Total time spent providing and/or coordinating discharge services: Greater than 30 minutes - Quality: VTE Deep Vein Thrombosis/Pulmonary Embolism Present on Admission: No Exam Vital signs: Vital Signs 01/29/18 12:00 01/29/18 16:00 01/29/18 20:00 Temperature 98.2 F 98.8 F 99 F Pulse Rate 78 71 77 Respiratory Rate 17 17 18 Blood Pressure 140/62 159/67 H 133/66 Pulse Oximetry 97 94 L 93 L 01/30/18 00:00 Temperature 97.7 F Pulse Rate 75 Respiratory Rate 18 Blood Pressure 161/74 H Pulse Oximetry 95 Intake & Output 01/29/18 01/30/18 01/30/18 18:59 06:59 18:59 Intake Total 720 / 720 1000 / 1000 Balance 720 / 720 1000 / 1000 Intake: IV 1000 / 1000 Potassium Chlor 20 mEq/NACL 0. 1000 / 1000 45% Inj 1,000 ML @ 42 mls/hr IV .CONT .[id number] [facility] Rx#: [id number] Oral 720 / 720 Other: # Voids 4 Date of Last Bowel Movement 01/27/18 01/27/18 # Bowel Movements 0 Narrative: GENERAL: Well-developed, well-nourished patient in [facility]. SKIN: Warm and dry. No rash. HEAD: Normocephalic. Atraumatic. EYES: Pupils equal and round. No scleral icterus. No injection or drainage. ENT: No nasal bleeding or discharge. Mucous membranes pink and moist. NECK: Supple. Trachea midline. CARDIOVASCULAR: Regular rate and rhythm. S1, S2 noted. No murmur appreciated. RESPIRATORY: No accessory muscle use. Clear to auscultation. Breath sounds equal bilaterally. GASTROINTESTINAL: Abdomen soft, non-tender, nondistended. Normoactive bowel sounds x4. MUSCULOSKELETAL: No obvious deformities. Extremities without clubbing, cyanosis , or edema. NEUROLOGICAL: Awake and alert. No obvious cranial nerve deficits. Motor grossly within normal limits. 5/5 muscle strength in bilateral upper and lower extremities. Normal speech. PSYCHIATRIC: Appropriate mood and affect; insight and judgment normal. Results Procedures completed during hospitalization: None. Labs on day of discharge: Labs from last 24 hours 01/30/18 01/30/18 01/29/18 05:15 05:15 21:53 CBC w Diff Slide review pending WBC 17.4 H RBC 3.76 L Hgb 11.8 Hct 35.3 MCV 93.9 MCH 31.3 MCHC 33.4 RDW 13.3 Plt Count 141 L MPV 9.7 Neut % (Auto) 36.9 Lymph % (Auto) 58.5 H [place] % (Auto) 3.5 Eos % (Auto) 0.3 Baso % (Auto) 0.8 Neut # (Auto) 6.4 Lymph # (Auto) 10.2 H [place] # (Auto) 0.6 Eos # (Auto) 0.1 Baso # (Auto) 0.1 WBC Differential Manual diff final Seg Neuts % (Manual) 37 Lymphocytes % (Manual) 60 H Monocytes % (Manual) 3 Abs Neuts (Manual) 6.4 Differential Comment . Smudge Cells Present H Platelet Estimate Low L Platelet Morphology Normal Sodium 137 Potassium 3.0 L Chloride 100 Carbon Dioxide 30.0 Anion Gap 7 BUN 20 H Creatinine 0.80 Estimated GFR 68 L POC Glucose 161 H Random Glucose 135 H Calcium 9.3 Total Creatine Kinase 787 H CK-MB (CK-2) 6.1 H CK-MB (CK-2) % 0.8 01/29/18 01/29/18 16:47 11:15 CBC w Diff WBC RBC Hgb Hct MCV MCH MCHC RDW Plt Count MPV Neut % (Auto) Lymph % (Auto) [place] % (Auto) Eos % (Auto) Baso % (Auto) Neut # (Auto) Lymph # (Auto) [place] # (Auto) Eos # (Auto) Baso # (Auto) WBC Differential Seg Neuts % (Manual) Lymphocytes % (Manual) Monocytes % (Manual) Abs Neuts (Manual) Differential Comment Smudge Cells Platelet Estimate Platelet Morphology Sodium Potassium Chloride Carbon Dioxide Anion Gap BUN Creatinine Estimated GFR POC Glucose 141 H 157 H Random Glucose Calcium Total Creatine Kinase CK-MB (CK-2) CK-MB (CK-2) % - Impressions ITS Impressions Liver Ultrasound 01/28/18 00:00 CONCLUSION: Heterogeneous liver with slight lobulation. Differential diagnosis includes cirrhosis. No gallstones. Common bile duct mildly prominent in size. Normal flow direction in the portal vein. 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 Head CT 01/28/18 13:47 CONCLUSION: 1. No acute intracranial abnormalities. . Chest X-Ray 01/28/18 14:42 CONCLUSION: Questionable density right upper lobe likely artifactual. Otherwise lungs are clear. Discharge Plan - Discharge Disposition Patient Disposition: 03 Discharge to SNF - Discharge Condition Condition: Good - Discharge Order Discharge Orders: Discharge Order (Routine); Ordered 01/30/18 Ordered By: Melani Hendrickson - Discharge Details Anticipated Discharge Date: 01/30/18 - Physicians Team Primary Care Provider: NON STAFF,PROVIDER Attending Provider: Lizeth Ferris Other Providers: Josemanuel Duenas,Agency
[2018-01-30] MEDS: Potassium Chloride 20 MEQ Pwd Pkt PO SCH (11:49)
[2018-01-30] MEDS: Senna/Docusate Sodium 8.6/50 MG Tablet PO SCH (11:49)
[2018-01-30] MEDS: amLODIPine 5 MG Tablet PO SCH (11:50)
[2018-01-30] MEDS: Insulin NovoLOG Aspart Correctional Sugar Inj SQ SCH ×2 (11:50→11:55)
[2018-01-30 15:41] VITALS: BP 104/53; PULSE 73; RESP 16; TEMP 98.2; O2SAT 96
== END 2018-01-30 16:11 ==
LOC: PHED 13:35 → PH3 14:43
PROVIDERS: ADMIT Hospitalist; ATTEND Hospitalist